=== PATIENT | male | born 1995 | race African-American/Black ===

== ENCOUNTER 2017-11-05 12:33 | Emergency (ER) | payer OTHER ==
[2017-11-05] MEDS ORDERED: SODIUM CHLORIDE 0.9% 1000ML 2,000 ML IV ONE (13:09)
[2017-11-05 13:14] LABS: BASOPHILS % (AUTO) 0.2 % (0.0-5.0); EOSINOPHILS % (AUTO) 0.1 % (0.0-8.0); HEMATOCRIT 46.9 % (42-54); LYMPHOCYTES % (AUTO) 7.1 % (21.0-51.0); MEAN CORPUSCULAR HEMOGLOBIN 30.5 pg (27.0-33.0); MEAN CORPUSCULAR HGB CONC 33.9 g/dL (32.0-36.0); MEAN CORPUSCULAR VOLUME 89.9 fL (79-99); MONOCYTES % (AUTO) 12.6 % (3.0-13.0); PLATELET COUNT (AUTO) 202 K/uL (130-400); RED BLOOD CELL COUNT(AUTO) 5.21 MIL/uL (4.50-6.20); RED CELL DISTRIBUTION WIDTH 13.6 % (11.0-15.5); WHITE BLOOD COUNT (AUTO) 9.8 K/uL (4.8-10.8)
[2017-11-05 13:20] LABS: CARBON DIOXIDE 26 mmol/L (21-32); CHLORIDE 105 mmol/L (101-111); CREATININE 1.1 mg/dL (0.5-1.5); GLOMERULAR FILTR. RATE CALC 88 mL/min (>60); GLUCOSE,RANDOM 111 mg/dL (70-105); POTASSIUM 3.9 mmol/L (3.5-5.1); SODIUM SERUM 140 mmol/L (136-145); UREA NITROGEN, BLOOD 12 mg/dL (7-18)
[2017-11-05 13:35] LABS: ALANINE AMINOTRANSFERASE 18 U/L (12-78); ALBUMIN 3.9 g/dL (3.5-5.0); ASPARTATE AMINOTRANSFERASE 17 U/L (10-37); BILIRUBIN,TOTAL 2.1 mg/dL (0.2-1.0); CREATINE KINASE MB < 0.5 ng/mL (0.5-3.6); CREATINE KINASE, TOTAL 100 U/L (21-232); MYOGLOBIN 21 ng/mL (10-92); TOTAL PROTEIN, SERUM 7.6 g/dL (6.0-8.3); TROPONIN I < 0.04 ng/mL (0.00-0.06)
[2017-11-05 13:36] LABS: INR 0.99 (0.85-1.15); PARTIAL THROMBOPLASTIN TIME 26.8 SEC (26.3-35.5); PROTHROMBIN TIME 10.4 SEC (9.6-11.6)
[2017-11-05] MEDS ORDERED: ACETAMINOPHEN EXTRA STRENGTH 500 MG TABLET ONE (13:42)
[2017-11-05 15:10] LABS: RAPID GROUP A STREP NEGATIVE (NEGATIVE)
[2017-11-05 16:50] LABS: APPEARANCE,URINE Clear (CLEAR); BILIRUBIN,URINE Negative (NEGATIVE); COLOR,URINE Yellow (YELLOW); GLUCOSE, URINE (UA) Negative (NEGATIVE); KETONES,URINE Negative (NEGATIVE); LEUKOCYTE ESTERASE ,URINE Negative (NEGATIVE); NITRATE,URINE Negative (NEGATIVE); OCCULT BLOOD,URINE Negative (NEGATIVE); PH,URINE 5.5 (5.0-8.0); PROTEIN,URINE Negative (NEGATIVE); UROBILINOGEN,URINE 0.2 mg/dL (0.2-1.0)
[2017-11-05] MEDS ORDERED: SODIUM CHLORIDE 0.9% 1000ML 1,000 ML IV ONE (17:00)
[2017-11-05] MEDS ORDERED: IBUPROFEN 400 MG TABLET ONE (17:01)
[2017-11-05] MEDS ORDERED: IBUPROFEN 200 MG TAB ONE (17:01)
[2017-11-05] MEDS ORDERED: OSELTAMIVIR PHOSPHATE 75 MG CAP ONE (18:10)
== END 2017-11-05 18:37 | disposition home or self-care (01) ==
LOC: EDH 12:33
DX: J10.1 Influenza due to other identified influenza virus with other respiratory manifestations (principal); E86.9 Volume depletion, unspecified; Z87.891 Personal history of nicotine dependence
CPT/HCPCS: 36415; 71045; 80053; 81003; 82550; 82553; 83605; 83874; 84484; 85025; 85610; 85730; 87040 ×2; 87088; 87186; 87804 ×2; 87880; 93005; 96360; 96361; 99285; J7030 ×2

== ENCOUNTER 2021-08-05 20:14 | Emergency (ER) | payer BC ==
[~2021-08-05] VITALS: Ht 160 cm; Wt 74.4 kg
[2021-08-05] MEDS ORDERED: MORPHINE 4 MG SYG IV ONE (20:30)
[2021-08-05] MEDS ORDERED: MIDAZOLAM HCL 1 MG/ML 2ML VIAL IVP ONE (20:30)
[2021-08-05] MEDS ORDERED: ONDANSETRON 4MG INJ IVP ONE (20:30)
[2021-08-05] MEDS ORDERED: ONDANSETRON 4MG INJ ONE (20:39)
[2021-08-05] MEDS ORDERED: MIDAZOLAM HCL 1 MG/ML 2ML VIAL ONE ×2 (20:40→20:41)
[2021-08-05] MEDS ORDERED: MORPHINE 4 MG SYG ONE (20:40)
[2021-08-05] MEDS ORDERED: 0.9%NACL 1000ML 1,000 ML IV ONE (21:00)
[2021-08-05] MEDS ORDERED: MORPHINE 2 MG SYG ONE (21:22)
[2021-08-05 22:45] VITALS: BP 114/62
== END 2021-08-05 22:51 | disposition home or self-care (01) ==
LOC: EDH 20:14
DX: S43.015A Anterior dislocation of left humerus, initial encounter (principal); F17.200 Nicotine dependence, unspecified, uncomplicated; Z79.899 Other long term (current) drug therapy; W22.8XXA Striking against or struck by other objects, initial encounter; Y93.43 Activity, gymnastics; Y92.89 Other specified places as the place of occurrence of the external cause; Y99.8 Other external cause status
CPT/HCPCS: 23650; 73020; 73030; 96361; 96374; 96375; 99152; 99285; J2250 ×3; J2270; J2405

== ENCOUNTER 2024-02-19 09:04 | Emergency (ER) | payer BC ==
[~2024-02-19] VITALS: Ht 160 cm; Wt 70.8 kg
[2024-02-19] MEDS: KETOROLAC 30MG VIAL (30MG/ML) IM ONE (10:27)
[2024-02-19] MEDS ORDERED: KETO10TA2 PO (10:31)
[2024-02-19 10:44] VITALS: BP 134/84; PULSE 82; RESP 16; O2SAT 99
== END 2024-02-19 10:47 | disposition home or self-care (01) ==
LOC: EDH 09:04
DX: S46.912A Strain of unspecified muscle, fascia and tendon at shoulder and upper arm level, left arm, initial encounter (principal); W18.39XA Other fall on same level, initial encounter; Y93.89 Activity, other specified; Y92.89 Other specified places as the place of occurrence of the external cause; Y99.8 Other external cause status
CPT/HCPCS: 99284; 73060; 73030; 96372; J1885